=== PATIENT | male | born 1990 | race Hispanic/Latino ===

== ENCOUNTER 2018-01-24 23:12 | Emergency (ER) | payer OTHER ==
[2018-01-24] MEDS ORDERED: LIDOCAINE HCL MPF 1% 5ML VIAL ONE (23:50)
[2018-01-24] MEDS ORDERED: CEFTRIAXONE SODIUM 1 GM ONE (23:50)
[2018-01-24] MEDS ORDERED: AZITHROMYCIN 250 MG TABLET PO ONE (23:51)
[2018-01-25 00:19] LABS: APPEARANCE,URINE Clear (CLEAR); BILIRUBIN,URINE Negative (NEGATIVE); COLOR,URINE Yellow (YELLOW); GLUCOSE, URINE (UA) Negative (NEGATIVE); KETONES,URINE Negative (NEGATIVE); LEUKOCYTE ESTERASE ,URINE Moderate (NEGATIVE); NITRATE,URINE Negative (NEGATIVE); OCCULT BLOOD,URINE Negative (NEGATIVE); PH,URINE 7.5 (5.0-8.0); PROTEIN,URINE Negative (NEGATIVE)
[2018-01-25 00:41] LABS: BACTERIA,URINE None Seen /HPF (None Seen); RBC,URINE None Seen /HPF (0-1); SQUAMOUS EPITHELIAL CELL,UR Rare /HPF (0-2); WBC,URINE 0-1 /HPF (0-1)
== END 2018-01-25 00:41 | disposition home or self-care (01) ==
LOC: EDH 23:12
DX: A64 Unspecified sexually transmitted disease (principal); Z72.0 Tobacco use
CPT/HCPCS: 81001; 87486; 87797; 96372; 99284; J0696; J3490